=== PATIENT | female | born 1970 | race Caucasian/White ===

== ENCOUNTER → 2019-03-03 | Outpatient (CLI) | payer BC ==
--- NOTE | 2019-03-04 09:36 | XR ---
EXAMINATION TYPE: XR ankle complete LT DATE OF EXAM: 03/03/2019 CLINICAL HISTORY: Rolled ankle. TECHNIQUE: Frontal, lateral and oblique images of the left ankle are obtained. COMPARISON: 03/30/2015 FINDINGS: Small linear osseous fragment is seen inferior to the lateral malleolus with mild soft tiss ue swelling. These findings are best seen on the frontal film. Ankle mortise is intact. Redemonstrati on of elongated sclerotic lesion in the distal tibia metaphysis, similar to prior. Small calcaneal sp ur. IMPRESSION: Tiny avulsion fracture of the lateral malleolus with associated soft tissue swelling. Findings are li brenda related to underlying ligamentous injury.
== END | disposition home or self-care (01) ==
LOC: RADXRYALE 16:26
PROVIDERS: ATTEND Physician Assistant Medical
DX: S82.62XA Displaced fracture of lateral malleolus of left fibula, initial encounter for closed fracture (principal)

== ENCOUNTER → 2020-05-27 | Outpatient (CLI) | payer OTHER ==
--- NOTE | 2020-05-27 15:38 | XR ---
EXAMINATION TYPE: XR lumbosacral spine 5 views DATE OF EXAM: 05/27/2020 Comparison: None Clinical History: 50-year-old female [id number] SACROILIITIS Findings: Mild degenerative disc interspace narrowing at L5-S1. Mild facet arthropathy lower lumbar spine. Vert ebral body heights are preserved and alignment is maintained. No pars interarticularis defect. SI anthony nts show no subarticular erosions on either side. Impression: Mild degenerative disc disease and mild facet arthropathy lower lumbar spine. No vertebral compressio n collapse or malalignment. These views show no subarticular erosions at the SI joints to suggest an inflammatory sacroiliitis.
== END | disposition home or self-care (01) ==
LOC: RADXRYALE 13:04
PROVIDERS: ATTEND Physician Assistant
DX: M51.36 Other intervertebral disc degeneration, lumbar region (principal); M47.816 Spondylosis without myelopathy or radiculopathy, lumbar region
CPT/HCPCS: 72110

== ENCOUNTER → 2024-08-13 | Outpatient (CLI) | payer OTHER ==
--- NOTE | 2024-08-13 08:56 | XR ---
EXAMINATION TYPE: XR foot complete LT DATE OF EXAM: 08/13/2024 CLINICAL HISTORY: Injury with pain TECHNIQUE: Frontal, lateral, and oblique images of the left foot are obtained. COMPARISON: None FINDINGS: There is no acute fracture/dislocation evident in the left foot. The joint spaces in the left foot appear within normal limits. Small inferior calcaneal spur is present. The overlying soft t issue appears unremarkable. IMPRESSION: There is no acute fracture or dislocation in the left foot. [facility], , 08/13/2024 8:54 AM
== END | disposition home or self-care (01) ==
LOC: RADXRYALE 08:37
PROVIDERS: ATTEND Family Medicine
DX: S99.922A Unspecified injury of left foot, initial encounter (principal); X58.XXXA Exposure to other specified factors, initial encounter